=== PATIENT | female | born 1985 | race Caucasian/White ===

== ENCOUNTER → 2023-06-17 10:23 | Outpatient (REF) | payer OTHER, SELFPAY | LOC: HWRAD 10:23 | PROVIDERS: ATTENDING PHYSICIAN Nurse Practitioner Family; FAMILY PHYSICIAN Family Medicine | DX: Z34.91 Encounter for supervision of normal pregnancy, unspecified, first trimester (principal) | CPT/HCPCS: 76801 ==

== ENCOUNTER → 2023-07-08 08:57 | Outpatient (REF) | payer OTHER, SELFPAY | LOC: PNTC 08:57 | PROVIDERS: ATTENDING PHYSICIAN Obstetrics & Gynecology | DX: Z36.0 Encounter for antenatal screening for chromosomal anomalies (principal); Z36.82 Encounter for antenatal screening for nuchal translucency | CPT/HCPCS: 36415; 76801; 76813 ==

== ENCOUNTER → 2023-08-30 10:11 | Outpatient (REF) | payer OTHER, SELFPAY | LOC: PNTC 10:11 | PROVIDERS: ATTENDING PHYSICIAN Obstetrics & Gynecology | DX: O09.529 Supervision of elderly multigravida, unspecified trimester (principal); O34.219 Maternal care for unspecified type scar from previous cesarean delivery; Z87.59 Personal history of other complications of pregnancy, childbirth and the puerperium | CPT/HCPCS: 76811 ==

== ENCOUNTER → 2023-09-23 13:08 | Outpatient (REF) | payer OTHER, SELFPAY | LOC: RAD 13:08 | PROVIDERS: ATTENDING PHYSICIAN Obstetrics & Gynecology; FAMILY PHYSICIAN Family Medicine | DX: O22.00 Varicose veins of lower extremity in pregnancy, unspecified trimester (principal) | CPT/HCPCS: 93971 ==

== ENCOUNTER → 2023-10-05 10:08 | Outpatient (REF) | payer OTHER, SELFPAY | LOC: PNTC 10:08 | PROVIDERS: ATTENDING PHYSICIAN Obstetrics & Gynecology | DX: O34.219 Maternal care for unspecified type scar from previous cesarean delivery (principal); O14.20 HELLP syndrome (HELLP), unspecified trimester; O43.199 Other malformation of placenta, unspecified trimester | CPT/HCPCS: 76816 ==

== ENCOUNTER 2023-11-26 17:36 | Observation (INO) | payer OTHER, SELFPAY ==
[2023-11-26 18:14] LABS: Hematocrit 29.6 % (37.0-47.0); Hemoglobin 10.9 g/dL (12.0-16.0); Mean Corp Hgb Conc. 36.8 g/dL (33.0-37.0); Mean Corpuscular Hgb 32.2 pg (27.0-31.0); Mean Corpuscular Volume 87.6 fL (81.0-99.0); Mean Platelet Volume 10.3 fL (7.4-10.4); Platelet Count 202 10^3/uL (130-400); Red Blood Cell Count 3.38 10^6/uL (4.20-5.40); Red Cell Dist. Width 14.6 % (11.5-14.5); White Blood Cell Count 6.9 10^3/uL (4.8-10.8)
[2023-11-26 18:25] LABS: ALT (SGPT) 31 U/L (0-35); AST (SGOT) 27 U/L (14-36); Albumin 3.3 g/dl (3.5-5.0); Alkaline Phosphatase 134 U/L (38-126); Blood Urea Nitrogen 7 mg/dl (7-17); Calcium 8.8 mg/dl (8.4-10.2); Carbon Dioxide 19 mmol/L (22-30); Chloride 108 mmol/L (98-107); Glucose 91 mg/dl (70-99); Potassium 3.7 mmol/L (3.5-5.1); Sodium 134 mmol/L (135-145); Total Bilirubin 0.4 mg/dl (0.2-1.3); Total Protein 6.1 g/dl (6.3-8.2); eGFR > 60.00
[2023-11-26 18:29] LABS: Urine Albumin Trace (Neg - Trace); Urine Bilirubin Negative (Negative); Urine Character Clear (Clear); Urine Color Yellow; Urine Glucose Negative (Negative); Urine Ketone 1+ (Negative); Urine Leukocyte Trace (Negative); Urine Nitrite Negative (Negative); Urine Occult Blood Trace (Negative); Urine Urobilinogen 1+ (Neg - 1+)
[2023-11-26 18:35] LABS: Urine Protein < 5 mg/dl
[2023-11-26 19:01] LABS: Urine Squamous Cell >30 /LPF (Few)
[2023-11-26 19:02] LABS: Urine Bacteria Few (Negative); Urine Red Blood Cell 0-2 /HPF (0-2)
== END 2023-11-26 19:13 | disposition home or self-care (01) ==
LOC: LDRP 17:36
PROVIDERS: ADMITTING PHYSICIAN Obstetrics & Gynecology
DX: O12.03 Gestational edema, third trimester (principal); Z3A.33 33 weeks gestation of pregnancy; O10.013 Pre-existing essential hypertension complicating pregnancy, third trimester
CPT/HCPCS: 80053; 81003; 81015; 82570; 84156; 85027; G0378

== ENCOUNTER 2023-11-30 14:46 | Inpatient (IN) | payer OTHER, SELFPAY ==
[2023-11-30 10:58] LABS: Urine Albumin Trace (Neg - Trace); Urine Bilirubin Negative (Negative); Urine Character Clear (Clear); Urine Color Yellow; Urine Glucose Negative (Negative); Urine Ketone Negative (Negative); Urine Leukocyte Negative (Negative); Urine Nitrite Negative (Negative); Urine Occult Blood Trace (Negative); Urine Specific Gravity 1.015 (<1.030); Urine Urobilinogen Negative (Neg - 1+); Urine pH 6.5 (5.0-9.0)
[2023-11-30 11:00] LABS: % Basophils 0.3 % (0-2); % Eosinophils 0.8 % (0-6); % Immature Granulocytes 0.7 % (0-0.5); % Lymphocytes 11.6 % (20.5-51.1); % Monocytes 8.6 % (1.7-9.3); Absolute Eosinophils 0.1 10^3/uL (0-0.7); Absolute Immature Granulocytes 0.1 10^3/uL (0-0.05); Absolute Lymphocytes 1.3 10^3/uL (1.2-3.4); Absolute Neutrophils 8.9 10^3/uL (1.4-6.5); Hematocrit 31.8 % (37.0-47.0); Hemoglobin 11.3 g/dL (12.0-16.0); Mean Corp Hgb Conc. 35.5 g/dL (33.0-37.0); Mean Corpuscular Hgb 31.7 pg (27.0-31.0); Mean Corpuscular Volume 89.1 fL (81.0-99.0); Mean Platelet Volume 10.6 fL (7.4-10.4); Nucleated Red Blood Cells % 0 %; Platelet Count 170 10^3/uL (130-400); Red Blood Cell Count 3.57 10^6/uL (4.20-5.40); Red Cell Dist. Width 14.8 % (11.5-14.5); White Blood Cell Count 11.4 10^3/uL (4.8-10.8)
[2023-11-30 11:08] VITALS: BP 123/71; BMI 37.2
[2023-11-30 11:12] LABS: ALT (SGPT) 97 U/L (0-35); AST (SGOT) 107 U/L (14-36); Albumin 3.4 g/dl (3.5-5.0); Alkaline Phosphatase 140 U/L (38-126); Blood Urea Nitrogen 6 mg/dl (7-17); Carbon Dioxide 21 mmol/L (22-30); Chloride 108 mmol/L (98-107); Glucose 72 mg/dl (70-99); Potassium 3.8 mmol/L (3.5-5.1); Sodium 136 mmol/L (135-145); Total Bilirubin 0.5 mg/dl (0.2-1.3); Total Protein 6.1 g/dl (6.3-8.2); eGFR > 60.00
[2023-11-30 11:15] LABS: Urine Bacteria Few (Negative); Urine Red Blood Cell 0-2 /HPF (0-2); Urine Squamous Cell 16-20 /LPF (Few); Urine White Cell 0-2 /HPF (0-5)
[2023-11-30 11:16] LABS: Protein/creatinine Ratio 0.3; Urine Protein 39 mg/dl
[2023-11-30] MEDS: LR 1000 IV (12:24)
[2023-11-30] MEDS: MAGNESIUM SULFATE 100 IV (12:25)
[2023-11-30] MEDS: CELESTONE SOLUSPAN 2 MG IM (12:29)
[2023-11-30] MEDS: MAGNESIUM SULFATE 40 GRAM 1000 IV (12:55)
[2023-11-30] MEDS: TYLENOL 1000 MG PO (14:34)
[2023-11-30] MEDS: BICITRA 30 ML PO (14:35)
[2023-11-30] MEDS: ANCEF 10 IV (15:53)
--- NOTE | 2023-11-30 16:09 | CON.NEO ---
Consultation
-
Date/Time Consultation Requested: 11/30/23 @ 1350
Date/Time Consultation Performed: 11/30/23 @ 1430
Requesting Provider: Dr. Hernandez
Performing Provider: Dr. Ortez
Reason for Consultation: HELLP and delivery
Consultation - Neonatology
Maternal Labs
Blood Type: B Positive
Antibody Screen: Negative
RPR: Nonreactive
Rubella: Immune
Hep B S Ag: Negative
Hep C: Negative
HIV: Nonreactive
Group B Strep: Unknown
Chlamydia/GC: Negative
Consult
Consult requested due to maternal HELLP syndrome necessitating delivery at 33+5 weeks.
Points discussed at consult:
- Management at delivery including the possibility of CPAP/intubation/surfactant discussed
- Respiratory: RDS possibility with possibility of worsening for 24-48 hrs, management including CPAP/surfactant/ventilator support may be required
- Nutrition: Hypoglycemia, need for IV fluids, gradual feed advance, Gavage feeding, importance of colostrum feeding, initiation of expression of colostrum within 3-4 hours, availability of donor milk, safety fo donor milk etc. were discussed.
- Procedures: Intubation, CPAP, IV placement, blood tests, umbilical arterial or venous lines, gavage feedings were discussed
- CVS: possibility of PDA not discussed in detail at this time
- WEIGHT LOSS SALES CONSULTANT: Rare possibility of IVH and need for head US, grading of IVH and termite control representative effects of Grade III/IV although extremely rare at >32 weeks were not discussed at this time.
- Jaundice possibility and need for phototherapy discussed
- Family Centered Care: Discussed FCC with emphasis on parental participation during sign off and during management rounds and is encouraged. Availability of carie eyes camera also discussed
- COVID-19: Visitation policy, modifications related to COVID-19, ever changing guidelines were discussed
Mom and Dad were given the opportunity to ask questions throughout and open invitation to call if any questions come as they absorb all the information given so far.
Face to Face Time
Total Zfny-oh-Mcwa Time (in Minutes): 20
Attending General Labor Forklift Operator: Lupe Ortez MD
[2023-11-30 23:40] LABS: Hematocrit 31.2 % (37.0-47.0); Hemoglobin 11.5 g/dL (12.0-16.0); Mean Corp Hgb Conc. 36.9 g/dL (33.0-37.0); Mean Corpuscular Volume 86.9 fL (81.0-99.0); Mean Platelet Volume 10.3 fL (7.4-10.4); Platelet Count 156 10^3/uL (130-400); Red Blood Cell Count 3.59 10^6/uL (4.20-5.40); Red Cell Dist. Width 14.8 % (11.5-14.5)
[2023-11-30 23:52] LABS: ALT (SGPT) 96 U/L (0-35); AST (SGOT) 90 U/L (14-36); Albumin 3.1 g/dl (3.5-5.0); Alkaline Phosphatase 146 U/L (38-126); Blood Urea Nitrogen 4 mg/dl (7-17); Calcium 7.5 mg/dl (8.4-10.2); Carbon Dioxide 17 mmol/L (22-30); Chloride 106 mmol/L (98-107); Estimated Creatinine Clearance > 125 ml/min; Glucose 108 mg/dl (70-99); Magnesium 4.9 mg/dl (1.6-2.3); Potassium 4.4 mmol/L (3.5-5.1); Sodium 131 mmol/L (135-145); Total Bilirubin 0.4 mg/dl (0.2-1.3); Total Protein 5.8 g/dl (6.3-8.2); eGFR > 60.00
--- NOTE | 2023-12-01 03:34 | DOWNTIME ---
There was a [employer] Client Retail Sales Assistant Downtime on 12/01/2023 from 0100 to 12/01/2023 at 0255. Downtime documentation of patient's care, including medication administrations, has been reconciled in the electronic record per guidelines. Refer to the
patient's paper chart under the miscellaneous tab to see printed paper medication records and downtime forms.
[2023-12-01] MEDS: LR 1000 IV (03:35)
[2023-12-01 06:24] LABS: Hematocrit 29.5 % (37.0-47.0); Hemoglobin 10.4 g/dL (12.0-16.0); Mean Corp Hgb Conc. 35.3 g/dL (33.0-37.0); Mean Corpuscular Hgb 32.3 pg (27.0-31.0); Mean Corpuscular Volume 91.6 fL (81.0-99.0); Mean Platelet Volume 10.7 fL (7.4-10.4); Platelet Count 155 10^3/uL (130-400); Red Blood Cell Count 3.22 10^6/uL (4.20-5.40); Red Cell Dist. Width 14.8 % (11.5-14.5); White Blood Cell Count 11.6 10^3/uL (4.8-10.8)
[2023-12-01 06:31] LABS: ALT (SGPT) 86 U/L (0-35); AST (SGOT) 69 U/L (14-36); Albumin 2.9 g/dl (3.5-5.0); Alkaline Phosphatase 133 U/L (38-126); Blood Urea Nitrogen 5 mg/dl (7-17); Calcium 7.2 mg/dl (8.4-10.2); Carbon Dioxide 18 mmol/L (22-30); Chloride 105 mmol/L (98-107); Estimated Creatinine Clearance > 125 ml/min; Glucose 99 mg/dl (70-99); Magnesium 5.5 mg/dl (1.6-2.3); Potassium 4.5 mmol/L (3.5-5.1); Sodium 131 mmol/L (135-145); Total Bilirubin 0.4 mg/dl (0.2-1.3); Total Protein 5.5 g/dl (6.3-8.2); eGFR > 60.00
[2023-12-01] MEDS: MAGNESIUM SULFATE 40 GRAM 1000 IV (07:36)
[2023-12-01] MEDS: PRENATAL PLUS 1 TABLET PO (07:36)
--- NOTE | 2023-12-01 16:17 | CM ---
Met with new mom Katherine at bedside. present but on phone
born at 33+ weeks - in NICU. named Ena
Pt confirmed address and phone number
Reports lives in a 2 story home with her and 4 children ages - 16, 15, 9 and 6
Mom reports she has most supplies for - will need to purchase car seat
Mom plans to breast feed - will need pump
Peds - [facility]
Discussed breast pump with mom - has no preference to DME
Sent Rx and face sheet to [employer] [facility]
Spoke with [place] - pt approved - pump to be delivered to pt home tomorrow
RN/Pt aware
CM will be available for d/c needs as needed
[2023-12-01] MEDS: LR IV (19:41)
[2023-12-01] MEDS: SENOKOT-S 1 TABLET PO (23:55)
[2023-12-02] MEDS: MOTRIN 600 MG PO ×3 (02:53→23:30)
[2023-12-02 05:55] LABS: Hemoglobin 9.9 g/dL (12.0-16.0); Mean Corp Hgb Conc. 35.4 g/dL (33.0-37.0); Mean Corpuscular Hgb 32.9 pg (27.0-31.0); Mean Platelet Volume 11.3 fL (7.4-10.4); Platelet Count 158 10^3/uL (130-400); Red Blood Cell Count 3.01 10^6/uL (4.20-5.40); Red Cell Dist. Width 15.5 % (11.5-14.5); White Blood Cell Count 12.2 10^3/uL (4.8-10.8)
[2023-12-02 06:37] LABS: ALT (SGPT) 59 U/L (0-35); AST (SGOT) 32 U/L (14-36); Albumin 2.8 g/dl (3.5-5.0); Alkaline Phosphatase 118 U/L (38-126); Blood Urea Nitrogen 14 mg/dl (7-17); Calcium 7.9 mg/dl (8.4-10.2); Carbon Dioxide 20 mmol/L (22-30); Chloride 111 mmol/L (98-107); Estimated Creatinine Clearance > 125 ml/min; Glucose 77 mg/dl (70-99); Potassium 4.4 mmol/L (3.5-5.1); Sodium 136 mmol/L (135-145); Total Bilirubin 0.3 mg/dl (0.2-1.3); Total Protein 5.5 g/dl (6.3-8.2); eGFR > 60.00
[2023-12-02] MEDS: FEOSOL 325 MG PO (08:06)
[2023-12-02] MEDS: PRENATAL PLUS 1 TABLET PO (08:06)
[2023-12-02 12:55] LABS: Syphilis/T. pallidum Ab Reflex Negative (Negative)
[2023-12-02] MEDS: TRANDATE 100 MG PO ×2 (13:55→19:54)
[2023-12-02] MEDS: SENOKOT-S 1 TABLET PO (19:55)
[2023-12-03] MEDS: MOTRIN 600 MG PO ×2 (07:12→23:15)
[2023-12-03] MEDS: FEOSOL 325 MG PO (08:07)
[2023-12-03] MEDS: TRANDATE 100 MG PO ×2 (08:07→19:44)
[2023-12-03] MEDS: PRENATAL PLUS 1 TABLET PO (08:07)
[2023-12-04] MEDS: PRENATAL PLUS 1 TABLET PO (08:11)
[2023-12-04] MEDS: TRANDATE 200 MG PO (08:11)
[2023-12-04] MEDS: FEOSOL 325 MG PO (08:11)
--- NOTE | 2023-12-04 10:05 | W.DS.TRANS ---
DC Summary - Communication Specialist
-
Discharge Instructions:
Discharge Diagnosis/Procedures delivered 33wks. HELLP syndrome;
repeat csection and tubal sterilization
Diet Regular
Activity No strenuous activity
Driving Restrictions No driving for 2 weeks
Bathing Restrictions OK to Shower
Instructions:
Stand-Alone Forms: LDRP Delivery
LDRP Hypertensive Disorders
Changes to Home Medications: No
Discharge Medications:
DC Medications w/original date entered in [employer]
Vitamin 1 tab PO DAILY Supplement 11/26/23
choline 1 tab PO DAILY Supplement 11/26/23
folic acid 1 tab PO DAILY Supplement 11/26/23
Home Medication Changes
Pending Results: Yes
Additional Pending Results:
placental pathology
Total time spent discharging patient (in min): 30
--- NOTE | 2023-12-04 14:51 | W.DS.TRANS ---
DC Summary - Director Consumer
-
Discharge Instructions:
Discharge Diagnosis/Procedures delivered 33wks. HELLP syndrome;
repeat csection and tubal sterilization
Diet Regular
Activity No strenuous activity
Driving Restrictions No driving for 2 weeks
Bathing Restrictions OK to Shower
Instructions:
Stand-Alone Forms: LDRP Delivery
LDRP Hypertensive Disorders
Changes to Home Medications: No
Discharge Medications:
DC Medications w/original date entered in [employer]
Vitamin 1 tab PO DAILY Supplement 11/26/23
choline 1 tab PO DAILY Supplement 11/26/23
folic acid 1 tab PO DAILY Supplement 11/26/23
ferrous sulfate 325 mg (65 mg iron) tablet (FeroSul) 325 mg PO DAILY anemia #0 tabs 12/03/23
ibuprofen 600 mg tablet 600 mg PO Q6HPRN PRN cramps #0 tabs 12/03/23
labetalol 200 mg tablet 200 mg PO BID #60 tabs 12/04/23
Home Medication Changes
Pending Results: Yes
Additional Pending Results:
placental path
Total time spent discharging patient (in min): 30
== END 2023-12-04 19:50 | disposition home or self-care (01) | DRG 785 ==
LOC: LDRP 14:46
PROVIDERS: Obstetrics & Gynecology; ADMITTING PHYSICIAN Obstetrics & Gynecology; ATTENDING PHYSICIAN Obstetrics & Gynecology
PROC: 10D00Z1 Extraction of Products of Conception, Low, Open Approach (ICD-10-PCS; 2023-11-30)
PROC: 0UT20ZZ Resection of Bilateral Ovaries, Open Approach (ICD-10-PCS; 2023-11-30)
PROC: 0UT70ZZ Resection of Bilateral Fallopian Tubes, Open Approach (ICD-10-PCS; 2023-11-30)
DX: O34.211 Maternal care for low transverse scar from previous cesarean delivery (principal); N85.8 Other specified noninflammatory disorders of uterus; O14.24 HELLP syndrome, complicating childbirth; Z3A.33 33 weeks gestation of pregnancy; Z37.0 Single live birth; O69.81X0 Labor and delivery complicated by cord around neck, without compression, not applicable or unspecified; Z30.2 Encounter for sterilization
CPT/HCPCS: 88302; 88307; 58605; 59025; 76816; 80053; 81003; 81015; 82570; 83735; 84156; 85025; 85027; 86780; 86850; 86900; 86901